=== PATIENT | male | born 1935 | race Caucasian/White ===

== ENCOUNTER → 2018-02-01 | Outpatient (CLI) | payer MEDICARE, BC ==
--- NOTE | 2018-02-01 12:59 | US ---
EXAMINATION TYPE: US venous doppler duplex LE LT DATE OF EXAM: 02/01/2018 12:37 PM COMPARISON: NONE CLINICAL HISTORY: M79.662 Pain In Limb. SIDE PERFORMED: Left TECHNIQUE: The lower extremity deep venous system is examined utilizing real time linear array sonog keira with graded compression, doppler sonography and color-flow sonography. VESSELS IMAGED: External Iliac Vein (EIV) Common Femoral Vein Deep Femoral Vein Greater Saphenous Vein * Femoral Vein Popliteal Vein Small Saphenous Vein * Proximal Calf Veins (* superficial vessels) Left Leg: Negative for DVT IMPRESSION: 1. Left lower extremity ultrasound negative for deep venous thrombosis.
--- NOTE | 2018-02-01 13:58 | XR ---
EXAMINATION TYPE: XR knee complete LT DATE OF EXAM: 02/01/2018 COMPARISON: NONE HISTORY: Pain TECHNIQUE: Four views are submitted. FINDINGS: Severe arthropathy of the medial compartment and patellofemoral joint with hypertrophic spurring. Sma ll amount of fluid in the suprapatellar bursa. Vascular calcifications noted. Osseous structures are intact. No acute fracture seen. IMPRESSION: 1. No acute fracture or dislocation. 2. Severe osteoarthritis.
== END | disposition home or self-care (01) ==
LOC: RADUSWWP 12:04
PROVIDERS: ATTEND Family Medicine
DX: M17.12 Unilateral primary osteoarthritis, left knee (principal); M79.662 Pain in left lower leg

== ENCOUNTER 2019-06-14 09:47 | Observation (INO) | payer OTHER, MEDICARE ==
[2019-06-14] MEDS ORDERED: SODIUM CHLORIDE 0.9% 500 ML 500 ML IV STA (10:13)
[2019-06-14] MEDS ORDERED: traMADol 50 MG TAB PO STA (10:15)
--- NOTE | 2019-06-14 10:19 | ED ---
Dizziness HPI - General Chief Complaint: Dizziness Stated Complaint: dizziness, fall Time Seen by Provider: 06/14/19 10:03 Source: patient Mode of arrival: ambulatory Limitations: no limitations - History of Present Illness Initial Comments: 83-year-old male with history of diabetes and hypertension controlled currently with medications per patient presenting today for chief complaint of dizziness fall possible syncope. Patient states he has had dizziness particularly when he goes to bed at night and lays down for the past 3-4 weeks. He states he mostly has only noticed this at night as soon as he lays down in bed. He states is a sensation that the room is spinning and he become slightly nauseous. Patient denies any chest pain or shortness of breath at this time denies any back pain. Patient denies any headache visual changes speech changes weakness of the upper or lower extremities or sensation deficits as a numbness or tingling sensation. Patient denies vomiting. Patient states that today he was standing near the toilet with the bathtub next to him he states he had another one of his dizzy spells with this time I'll standing up. He states that he is unsure if he passed out he states it seems that way because he doesn't remember falling but remembers when he hit the bathtub with his left low back. Patient states he has pain in that area. Patient denies abdominal pain chest pain shortness of breath current dizziness. Patient states he has no upper back neck headache hematomas or contusions of the scalp he states he does not believe he hit his head but can't be for sure. Patient denies the use of anticoagulation therapy. Upon arrival patient appears well, ambulatory no signs of acute distress. Only complaint currently is left low back pain. - Related Data Home Medications Medication Instructions Recorded Confirmed Aspirin [Adult Low Dose Aspirin EC] 81 mg PO DAILY 03/21/17 03/21/17 Lisinopril [Prinivil] 5 mg PO DAILY 03/21/17 03/21/17 Multivitamins, Thera [Multivitamin 1 tab PO DAILY 03/21/17 03/21/17 (formulary)] Simvastatin 20 mg PO HS 03/21/17 03/21/17 Vitamin E Acetate [Vitamin E] 200 unit PO DAILY 03/21/17 03/21/17 Allergies Allergy/AdvReac Type Severity Reaction Status Date / Time No Known Allergies Allergy Verified 06/14/19 09:51 Review of Systems ROS Statement: Those systems with pertinent positive or pertinent negative responses have been documented in the HPI. ROS Other: All systems not noted in ROS Statement are negative. Past Medical History Past Medical History: Diabetes Mellitus, Hyperlipidemia, Hypertension History of Any Multi-Drug Resistant Organisms: None Reported Past Surgical History: Appendectomy Additional Past Surgical History / Comment(s): Melanoma removed from face 2010. Past Psychological History: No Psychological Hx Reported Smoking Status: Former smoker Past Alcohol Use History: Occasional Past Drug Use History: None Reported General Exam - General Exam Comments Initial Comments: General: The patient is awake and alert, in no distress Eye: +3 mm pupils are equal, round and reactive to light, extra-ocular movements are intact. No nystagmus. There is normal conjunctiva bilaterally. No signs of icterus. Ears, nose, mouth and throat: There are moist mucous membranes and no oral lesions. No raccoon or alcala sign. Neck: The neck is supple, there is no tenderness or JVD. Cardiovascular: There is a regular rate and rhythm. No murmur, rub or gallop is appreciated. Respiratory: Lungs are clear to auscultation, respirations are non-labored, breath sounds are equal. No wheezes, stridor, rales, or rhonchi. Gastrointestinal: Soft, non-distended, non-tender abdomen without masses or organomegaly noted. There is no rebound or guarding present. No CVA tenderness. Musculoskeletal: Upon inspection of the cervical thoracic and lumbar spine there is no ecchymosis. Patient is no midline tenderness patient has left-sided paraspinal tenderness. Some pain noted over the water appears iliac crest region. Normal ROM of the UE and LE b/l, no tenderness. Strength 5/5 of the UE and LE b/l. Sensation intact of the UE and LE b/l. Radial pulses equal bilaterally 2+. Neurological: A&O x 3. CN II-XII intact, There are no obvious motor or sensory deficits. Coordination appears grossly intact. Speech is normal. Skin: Skin is warm and dry and no rashes or lesions are noted. No LE edema. Psychiatric: Cooperative, appropriate mood & affect, normal judgment. Limitations: no limitations Course Vital Signs 06/14/19 06/14/19 09:51 10:30 Temperature 98.1 F Pulse Rate 68 66 Respiratory 18 18 Rate Blood Pressure 158/72 144/68 O2 Sat by Pulse 95 96 Oximetry EKG Findings - EKG Comments: EKG Findings:: Ventricular rate 66 bpm, MD interval 194 ms, QRS addition 104 ms, QT/QTC 404/423 ms. This is normal sinus no ST elevation or depression. No acute changes noted. Medical Decision Making - Medical Decision Making 83-year-old male presenting for syncope with fall. Complaining of left low back and hip pain imaging studies negative for osseous process patient neurovascular intact as well as a laboratory. Patient has been having 3-4 weeks of dizziness when lying flat usually at nighttime. Patient denies any dizziness with rapid change of position or turning of the head. Patient denies any ataxia or off balance. Patient denies any headaches or focal neurological deficits. No noted on examination. No nystagmus no ataxia on exam. Patient had syncopal episode today this is concerning for possible cardiac source of dizziness. Patient EKG shows no acute findings patient on telemetry. Patient's laboratory studies unremarkable troponin negative. Patient denies any chest pain or shortness of breath. I did not appreciate a carotid bruit, or central signs of vertigo. At this time after reviewing laboratory studies EKG chest x-ray with my attending provider feels appropriate for admission for further cardiac evaluation. Patient is agreeable to this care plan as well as admission-results were discussed with patient prior to admission. Dr. Rosado accepted admission. - Lab Data Result diagrams: 06/14/19 10:20 06/14/19 10:20 Lab Results 06/14/19 06/14/19 06/14/19 Range/Units 10:20 10:20 10:20 WBC 6.8 (3.8-10.6) k/uL RBC 4.31 (4.30-5.90) m/uL Hgb 13.1 (13.0-17.5) gm/dL Hct 39.1 (39.0-53.0) % MCV 90.7 (80.0-100.0) fL MCH 30.5 (25.0-35.0) pg MCHC 33.6 (31.0-37.0) g/dL RDW 12.6 (11.5-15.5) % Plt Count 188 (150-450) k/uL Neutrophils % 55 % Lymphocytes % 32 % Monocytes % 6 % Eosinophils % 3 % Basophils % 1 % Neutrophils # 3.8 (1.3-7.7) k/uL Lymphocytes # 2.2 (1.0-4.8) k/uL Monocytes # 0.4 (0-1.0) k/uL Eosinophils # 0.2 (0-0.7) k/uL Basophils # 0.1 (0-0.2) k/uL PT 11.1 (9.0-12.0) sec INR 1.1 (<1.2) Sodium 137 (137-145) mmol/L Potassium 4.7 (3.5-5.1) mmol/L Chloride 104 (98-107) mmol/L Carbon Dioxide 22 (22-30) mmol/L Anion Gap 11 mmol/L BUN 27 H (9-20) mg/dL Creatinine 0.89 (0.66-1.25) mg/dL Est GFR (CKD-EPI)AfAm >90 (>60 ml/min/1.73 sqM) Est GFR (CKD-EPI)NonAf 79 (>60 ml/min/1.73 sqM) Glucose 232 H (74-99) mg/dL Calcium 9.7 (8.4-10.2) mg/dL Total Bilirubin 1.5 H (0.2-1.3) mg/dL AST 25 (17-59) U/L ALT 19 (4-49) U/L Alkaline Phosphatase 51 (38-126) U/L Troponin I (0.000-0.034) ng/mL Total Protein 7.3 (6.3-8.2) g/dL Albumin 4.6 (3.5-5.0) g/dL 06/14/19 Range/Units 10:20 WBC (3.8-10.6) k/uL RBC (4.30-5.90) m/uL Hgb (13.0-17.5) gm/dL Hct (39.0-53.0) % MCV (80.0-100.0) fL MCH (25.0-35.0) pg MCHC (31.0-37.0) g/dL RDW (11.5-15.5) % Plt Count (150-450) k/uL Neutrophils % % Lymphocytes % % Monocytes % % Eosinophils % % Basophils % % Neutrophils # (1.3-7.7) k/uL Lymphocytes # (1.0-4.8) k/uL Monocytes # (0-1.0) k/uL Eosinophils # (0-0.7) k/uL Basophils # (0-0.2) k/uL PT (9.0-12.0) sec INR (<1.2) Sodium (137-145) mmol/L Potassium (3.5-5.1) mmol/L Chloride (98-107) mmol/L Carbon Dioxide (22-30) mmol/L Anion Gap mmol/L BUN (9-20) mg/dL Creatinine (0.66-1.25) mg/dL Est GFR (CKD-EPI)AfAm (>60 ml/min/1.73 sqM) Est GFR (CKD-EPI)NonAf (>60 ml/min/1.73 sqM) Glucose (74-99) mg/dL Calcium (8.4-10.2) mg/dL Total Bilirubin (0.2-1.3) mg/dL AST (17-59) U/L ALT (4-49) U/L Alkaline Phosphatase (38-126) U/L Troponin I <0.012 (0.000-0.034) ng/mL Total Protein (6.3-8.2) g/dL Albumin (3.5-5.0) g/dL Disposition Clinical Impression: Syncope, Fall, Low back pain, Dizziness, Blood glucose elevated Disposition: ADMITTED IP TO THIS [facility] Condition: Stable Is patient prescribed a controlled substance at d/c from ED?: No Referrals: [facility],Clinic [Primary Care Provider] - 1-2 days Time of Disposition: 12:10 Decision to Admit Reason: Admit from EC Decision Date: 06/14/19 Decision Time: 12:10
[2019-06-14 10:41] LABS: Basophils # (A) 0.1 k/uL (0-0.2); Basophils % (A) 1 %; Eosinophils # (A) 0.2 k/uL (0-0.7); Eosinophils % (A) 3 %; HCT 39.1 % (39.0-53.0); HGB 13.1 gm/dL (13.0-17.5); INR 1.1 (<1.2); Lymphocytes # (A) 2.2 k/uL (1.0-4.8); Lymphocytes % (A) 32 %; MCH 30.5 pg (25.0-35.0); MCHC 33.6 g/dL (31.0-37.0); MCV 90.7 fL (80.0-100.0); Mean Platelet Volume 7.3; Monocytes # (A) 0.4 k/uL (0-1.0); Monocytes % (A) 6 %; Neutrophils # (A) 3.8 k/uL (1.3-7.7); Neutrophils % (A) 55 %; Platelet Count 188 k/uL (150-450); Prothrombin Time 11.1 sec (9.0-12.0); RBC 4.31 m/uL (4.30-5.90); RDW 12.6 % (11.5-15.5); WBC 6.8 k/uL (3.8-10.6)
[2019-06-14 10:48] LABS: ALT 19 U/L (4-49); AST 25 U/L (17-59); African American GFR (CKD) >90 (>60 ml/min/1.73 sqM); Albumin 4.6 g/dL (3.5-5.0); Alkaline Phosphatase 51 U/L (38-126); Anion Gap 11 mmol/L; Blood Urea Nitrogen 27 mg/dL (9-20); Calcium 9.7 mg/dL (8.4-10.2); Carbon Dioxide 22 mmol/L (22-30); Chloride 104 mmol/L (98-107); Glucose 232 mg/dL (74-99); Non-African American GFR(CKD) 79 (>60 ml/min/1.73 sqM); Potassium 4.7 mmol/L (3.5-5.1); Sodium 137 mmol/L (137-145); Total Bilirubin 1.5 mg/dL (0.2-1.3); Total Protein 7.3 g/dL (6.3-8.2)
--- NOTE | 2019-06-14 11:19 | XR ---
EXAMINATION TYPE: XR chest 2V DATE OF EXAM: 06/14/2019 COMPARISON: None HISTORY: Dizziness TECHNIQUE: Frontal and lateral views of the chest are obtained. FINDINGS: Patient is rotated the exam is expiratory. There are overlying cardiac leads. Minimal subse gmental basilar atelectatic changes are suspected. There is no focal air space opacity, pleural effus ion, or pneumothorax seen. The cardiac silhouette size is within normal limits. The osseous struct ures are intact, anterior wedging noted at the thoracic lumbar junction level, there is multilevel sp ondylosis present in the thoracic lumbar spine. Aorta is dense. IMPRESSION: Expiratory rotated exam. Suspect subsegmental basilar atelectatic changes.
--- NOTE | 2019-06-14 11:21 | XR ---
Left hip HISTORY: Trauma, pain 2 views of the left hip Bone mineralization, joint spaces and alignment are maintained. Similar projections of the 2 images. Mild arthropathy change, hypertrophic change noted. IMPRESSION: No fracture or dislocation evident, follow-up as indicated.
--- NOTE | 2019-06-14 11:24 | CT ---
EXAMINATION TYPE: CT brain harpal kaba con DATE OF EXAM: 06/14/2019 COMPARISON: 03/21/2017 HISTORY: Fall CT DLP: 1431.4 mGycm, Automated exposure control for dose reduction was used. CONTRAST: Patient injected with 0 mL of Isovue 300. CT of the brain is performed utilizing 3 mm thick sections through the posterior fossa and 3 mm thick sections through the remaining calvarium. Study is performed within 24 hours of arrival to the hospital. No abnormal hyperdensity is present to suggest an acute intracranial hemorrhage. No mass lesion is evident. No acute infarcts are evident. Ventricles and sulci are prominent for the patient age. There is a retention cyst within the right maxillary sinus. Tiny retention cyst is within the left ma xillary sinus. IMPRESSIONS: 1. Age-related atrophy. CT cervical spine. COMPARISON: None CT of the cervical spine is performed in the axial plane at 2 mm thick sections. Reconstructed image s in the coronal, and sagittal plane are reviewed on the computer. No acute fractures are evident. Vertebral body alignment is straightened. There is loss of disc height C3-4, C5-6 C6-7. Endplate spurring is present at these levels. Anterior vertebral body spurring is present. The prevertebral space is otherwise unremarkable. Vertebral body heights are preserved. There is some left foraminal narrowing due to facet hypertrophy is seen to C3. Mild uncovertebral jc nt hypertrophy is present C3-4. Some mild right foraminal narrowing is present C4-5 from uncovertebra l joint hypertrophy and facet hypertrophy. Uncovertebral joint hypertrophy with mild foraminal narrow ing is present C5-6. Moderate foraminal stenosis at C6-7 from uncovertebral joint hypertrophy is pres ent. Left paracentral endplate spurring may contribute to some spinal canal impingement. Correlate wi th the radicular symptoms. IMPRESSIONS: 1. No acute osseous abnormality cervical spine. 2. Degenerative disc changes uncovertebral joint hypertrophy and facet hypertrophy discussed above. S ome moderate foraminal narrowing and left paracentral anterior thecal sac compression is present C6-7 from osseous spurring and degenerative changes
--- NOTE | 2019-06-14 11:30 | XR ---
Lumbar spine HISTORY: Trauma and pain 3 views the lumbar spine Anterior wedging is noted at L1, loss of height anteriorly of approximately 50%. Difficult to exclude some minimal retropulsion. Bone mineralization is reduced. There is multilevel spondylosis. Loss of disc height present at several intervertebral levels. Anterolisthesis grade 1 at L5-S1, vacuum disc p henomenon present at the intervertebral levels L3-4, L4-5 and L5-S1. Sclerosis present in the posteri or element compatible with facet arthropathy. Atherosclerotic vascular calcifications are noted. Ther e is a slight spinal curvature. IMPRESSION: Osteoporotic compression fracture L1. Degenerative disc disease, spondylolisthesis, facet arthropathy.
[2019-06-14] MEDS ORDERED: NALOXONE 0.4 MG/ML 1 ML VIAL IV PRN (12:07)
[2019-06-14] MEDS ORDERED: ONDANSETRON 4 MG/2 ML VIAL IVP PRN (12:07)
[2019-06-14] MEDS ORDERED: MORPHINE SULFATE 4 MG/ML SYRINGE IV PRN (12:07)
[2019-06-14] MEDS: SODIUM CHLORIDE 0.9% 1,000 ML IV SCH (12:56)
[2019-06-14 16:00] LABS: Appearance,Urine Clear (Clear); Bilirubin,Urine Negative (Negative); Blood,Urine Negative (Negative); Color,Urine Yellow; Glucose,Urine (UA) Negative (Negative); Ketones,Urine Negative (Negative); Leukocyte Esterase,Urine Negative (Negative); Nitrite,Urine Negative (Negative); PH, Urine 5.5 (5.0-8.0); Protein,Urine Negative (Negative); Specific Gravity,Urine 1.026 (1.001-1.035); Urobilinogen,Urine <2.0 mg/dL (<2.0)
[2019-06-14 17:03] LABS: Glucose,Whole Blood 191 mg/dL (75-99)
[2019-06-14] MEDS: INSULIN ASPART (NovoLOG) 100 UNIT/ML VIAL SQ SCH ×2 (17:09→20:41)
--- NOTE | 2019-06-14 18:56 | P.CNNES ---
History of Present Illness Consult date: 06/14/19 Requesting physician: Elizabeth Pike Reason for Consult: Dizziness History of Present Illness: Patient is a 83-year-old male who came to the hospital after he suffered from a fall in the bathroom at 5 AM this morning. Patient states that at night he wanted to go to the bathroom. He was standing up and fell backwards. He thinks he may have passed out for a short while. Patient denies being tripping or slipping. Patient states that for the past 1 month, he has been feeling dizzy, lightheaded and spinning sensation whenever he lays down on his back in the bed. It also happens when he rolls over in the bed on the right side. The dizziness does not occur when he bends down or looks up. Patient states that about 3 years ago he fell off a 3 step ladder and fell on back of his head. He did have janeth put in. Did not have any chronic headaches afterwards. He did pass out for short while after that fall. I looked at the records, and it actually occurred on 03/21/2017. Patient also has a fall couple weeks ago in the living room. This time he fell face forward. He does not remember if he tripped and there was no passing out. Patient does not use any assistive device. Patient denies any tremors or any parkinsonian features. Patient has history of diabetes. He does not smoke. Drinks one mixed drink of alcohol every other day. Never been a heavy drinker. Patient is very hard of hearing. Patient underwent computed tomography scan of the head, which revealed age- related atrophy. CT of the cervical spine showed no acute osseous abnormality cervical spine. Degenerative disc changes uncovertebral joint hypertrophy and facet hypertrophy discussed above. Some moderate foraminal narrowing and left paracentral anterior thecal sac compression is present at C6 7 from osseous spurring and degenerative changes. X-ray of the lumbar spine showed osteoporotic compression fracture L1. Spondylolisthesis. EKG showed normal sinus rhythm. X-ray of the hip showed no fracture or dislocation. Review of Systems Complains of back pain, from compression fracture. Patient is very hard of hearing. Denies headache and double vision loss of vision. Denies chest pain shortness of breath wheezing cough. Patient denies sinus drainage, though has sinus congestion. Denies nausea vomiting diarrhea. Past Medical History Past Medical History: Diabetes Mellitus, Hyperlipidemia, Hypertension History of Any Multi-Drug Resistant Organisms: None Reported Past Surgical History: Appendectomy Additional Past Surgical History / Comment(s): Melanoma removed from face 2009. Past Psychological History: No Psychological Hx Reported Smoking Status: Former smoker Past Alcohol Use History: Occasional Past Drug Use History: None Reported Medications and Allergies Home Medications Medication Instructions Recorded Confirmed Type Aspirin [Adult Low Dose Aspirin EC] 81 mg PO DAILY 03/21/17 06/14/19 History Multivitamins, Thera [Multivitamin 1 tab PO DAILY 03/21/17 06/14/19 History (formulary)] Simvastatin 20 mg PO HS 03/21/17 06/14/19 History Lisinopril [Zestril] 10 mg PO DAILY 06/14/19 06/14/19 History Chamberino-3 Fatty Acids/Fish Oil [Fish 1 cap PO DAILY 06/14/19 06/14/19 History Oil 1,000 mg Softgel] Tamsulosin [Flomax] 0.4 mg PO DAILY 06/14/19 06/14/19 History metFORMIN HCL [Glucophage] 500 mg PO BID 06/14/19 06/14/19 History Allergies Allergy/AdvReac Type Severity Reaction Status Date / Time No Known Allergies Allergy Verified 06/14/19 13:00 Physical Examination - Vital Signs Vital Signs: Vital Signs Temp Pulse Pulse Resp BP BP Pulse Ox 06/14/19 14:31 97.7 F 64 148/75 97 06/14/19 12:58 98.2 F 64 18 131/72 95 06/14/19 10:30 66 18 144/68 96 06/14/19 09:51 98.1 F 68 18 158/72 95 Intake and Output 06/14/19 06/14/19 06/14/19 06:59 14:59 22:59 Other: Voiding Method Toilet # Voids 1 Weight 88.451 kg On examination patient is an elderly male, in no distress. Patient is alert and awake fully oriented. Speech and language functions are normal. Attention and concentration fund of knowledge is adequate. Patient is very hard of hearing, using hearing aids. On cranial nerve examination pupils are round and reacting to light, visual obrien are full on confrontation, extraocular muscles intact with no nystagmus. Face is symmetric, tongue protrudes the midline. Palatal elevation sensation normal. On muscle strength testing there is no pronator drift and the strength is normal in arms and legs distally and proximally. Reflexes are about 1-1+ in the upper limbs, 1+ in the right knee, 1 on left. Ankles are probably absent and plantars are possibly upgoing. Sensory touch is equal. No ataxia for [id number] testing. Tone is completely n ormal in both upper limbs and bulk of muscles normal. No tremors noted at rest or with posture. Patient does get dizzy when he turns his head to the right. Full body turning could not be performed because of back pain from recent compression fracture. There is no obvious bruit S1 and S2 audible. Peripheral pulses present. Results - Laboratory Findings CBC and BMP: 06/14/19 10:20 06/14/19 10:20 Abnormal Lab Findings: Abnormal Labs 06/14/19 06/14/19 10: 17:02 BUN 27 H Glucose 232 H POC Glucose (mg/dL) 191 H Total Bilirubin 1.5 H Assessment and Plan Assessment: * 83-year-old male admitted with a fall while going to the bathroom. Patient states that he may have passed out for a short while (? Possible syncope). Patient also has been experiencing dizziness on laying back in the bed or rolling over to the right for the past 1 month. He may have developed benign positional vertigo. Computed tomography scan of head revealed very significant right maxillary sinus disease (retention cyst), with near complete opacification of the maxillary sinus. Patient also has moderate ethmoid air cell disease, and mild sphenoid sinus. His dizziness is likely due to peripheral vestibular dysfunction, probably related to paranasal sinus disease. No clinical evidence of parkinsonism. * Diabetes * Hypertension Plan: * For possible syncopal spell, patient will undergo carotid Doppler to rule out stenosis. Cardiology also on board, to rule out arrhythmia. * For vertigo and falls, we will check B12, folate, RPR. I would also suggest an ENT consultation for severe paranasal sinus disease. Patient probably has peripheral vestibular dysfunction as a result of above. * Neurology coverage not available on the weekend.
[2019-06-14] MEDS ORDERED: ALPRAZolam 0.25 MG TAB PO PRN (19:04)
--- NOTE | 2019-06-14 19:47 | US ---
EXAMINATION TYPE: US carotid duplex BILAT DATE OF EXAM: 06/14/2019 COMPARISON: NONE CLINICAL HISTORY: vertigo. EXAM MEASUREMENTS: RIGHT: Peak Systolic Velocity (PSV) cm/sec ----- Right CCA: 76.8 ----- Right ICA: 78.1 ----- Right ECA: 98.4 ICA/CCA ratio: 1.0 RIGHT: End Diastole cm/sec ----- Right CCA: 14.2 ----- Right ICA: 15.5 ----- Right ECA: 4.7 LEFT: Peak Systolic Velocity (PSV) cm/sec ----- Left CCA: 96.9 ----- Left ICA: 78.8 ----- Left ECA: 94.0 ICA/CCA ratio: 0.8 LEFT: End Diastole cm/sec ----- Left CCA: 10.2 ----- Left ICA: 14.1 ----- Left ECA: 6.8 VERTEBRALS (direction of flow): Right Vertebral: Antegrade Left Vertebral: Antegrade Rhythm: Normal Moderate/severe amount of plaque visualized in bilateral bulbs and proximal ICAs. No elevated velocit ies, no significant stenosis IMPRESSION: There is antegrade flow in the vertebral arteries. Extensive irregular plaque formation at the caroti d artery bifurcations. The images and measurements suggest 50% stenosis in both internal carotid yajaira jennifer. Criteria for Assigning % of Stenosis / Diameter reduction (Estimation based on the indirect measurements of the internal carotid artery velocities (ICA PSV). 1. Normal (no stenosis)=ICA PSV < 125 cm/s: ratio < 2.0: ICA EDV<40 cm/s. 2. Less than 50% stenosis=ICA PSV < 125 cm/s: ratio < 2.0: ICA EDV<40 cm/s. 3. 50 to 69% stenosis=ICA PSV of 125 to 230 cm/s: ration 2.0 ? 4.0: ICA EDV 40-100 cm/s. 4. Greater than 70% stenosis to near occlusion= ICA PSV > 230 cm/s: ratio > 4.0: ICA EDV > 100 cm/s. 5. Near occlusion= ICA PSV velocities may be low or undetectable: variable ratio and ICA EDV. 6. Total occlusion=unable to detect flow.
[2019-06-14 19:54] LABS: Glucose,Whole Blood 171 mg/dL (75-99)
[2019-06-14] MEDS: metFORMIN 500 MG TAB PO SCH (20:46)
[2019-06-14] MEDS: HEPARIN SODIUM,PORCINE 5,000 UNIT/ML 1 ML VIAL SQ SCH (20:46)
[2019-06-14] MEDS: MECLIZINE 12.5 MG TAB PO SCH (20:46)
[2019-06-14] MEDS: ATORVASTATIN 10 MG TAB PO SCH (20:46)
--- NOTE | 2019-06-14 22:34 | HP ---
HISTORY AND PHYSICAL DATE OF SERVICE: 06/14/2019 CHIEF COMPLAINT: Dizziness. HISTORY OF PRESENT ILLNESS: This 83-year-old gentleman with a past medical history of multiple medical problems, diabetes, hypertension, hyperlipidemia, appendectomy, being followed by Dr. Graves in the outpatient setting, was complaining of dizziness. The patient apparently had at least 2 falls today. The patient was in the toilet urinating, but apparently the patient fell in the bathtub. The patient unable to remember exact details of the instances. The patient followed by the [facility] and the patient taken to [facility] and admitted to the hospital for further evaluation and treatment at this time. Neurology evaluation ongoing. The patient was feeling dizzy for the last several weeks. The patient also states a sensation of spinning. CT scan of the brain showed only age-related atrophy. Lumbar x-ray showed compression fracture of L1. The possibility of peripheral vascular has been also being considered at this time. There is no history of fever, rigors. No history of any headache, seizures at this time. PAST MEDICAL HISTORY: History of diabetes, hypertension, hyperlipidemia, history of melanoma removal, appendectomy. MEDICATIONS: 1. Metformin 500 mg p.o. b.i.d. 2. Flomax 0.4 daily. 3. Simvastatin 20 mg q.h.s. 4. [place]-3 fatty acids 1 p.o. daily. 5. Multivitamins one p.o. daily. 6. Zestril 10 mg daily. 7. Aspirin 81 mg daily. ALLERGIES: None. FAMILY HISTORY: No history of heart disease or strokes in the family. SOCIAL HISTORY: Previous history of smoking. Occasional alcohol intake. REVIEW OF SYSTEMS: ENT as mentioned earlier. CARDIOVASCULAR: No angina or palpitations. RESPIRATIONS: No cough or hemoptysis. GI no nausea or vomiting. no dysuria or hematuria. NERVOUS SYSTEM: As mentioned earlier. ALLERGY/IMMUNOLOGY: No asthma or hayfever. MUSCULOSKELETAL as mentioned. HEMATOLOGY: No history of anemia. ENDOCRINE: No history of diabetes or hypothyroidism. CONSTITUTIONAL: As mentioned earlier. RHEUMATOLOGY: Negative. DERMATOLOGY: Negative. PSYCHIATRIC: As mentioned earlier. PHYSICAL EXAMINATION: Alert and oriented x3. Pulse is 64, blood pressure 140/73, respirations 18. Temperature 98.2, pulse ox 97% on room air. Conjunctivae normal. Oral mucosa moist. Neck is no jugular venous distention. No carotid bruit. No lymph node enlargement. CARDIOVASCULAR systems: S1, S2 muffled. RESPIRATION: Breath sounds diminished in the bases. No rhonchi. No crackles. ABDOMEN: Soft, nontender. No mass palpable. LEGS: No edema. No swelling. NERVOUS SYSTEM: Higher functions as mentioned earlier. Otherwise, cranial nerves grossly intact. No nystagmus. No diplopia. Otherwise, no signs of cerebellar dysfunction. Moves all 4 limbs. Mild diffuse weakness. LYMPHATICS: No lymph nodes palpable in the neck, axillae or groin. SKIN: No ulcer, rash or bleeding. JOINTS: No active deforming arthropathy. LABS: CBC within normal limits. Glucose 232, total bilirubin is 1.4. UA noted. ASSESSMENT: 1. Dizziness, vertigo for evaluation with a fall with possibly peripheral vestibular dysfunction. 2. Rule out cardiac arrhythmia. 3. Diabetes mellitus type 2. 4. Hypertension. 5. Hyperlipidemia. 6. History of appendectomy. 7. History of melanoma. 8. Remote history of nicotine dependence. 9. FULL CODE. RECOMMENDATIONS AND DISCUSSION: In this 83-year-old gentleman who presented with multiple complex medical issues, we will monitor the patient closely. Continue the current medications, management and symptomatic treatment. Otherwise, at this time, I recommend continue with the current medications, symptomatic treatment. Otherwise, p.r.n. Antivert. I recommended neurology and cardiology consultations., guarded prognosis. Further recommendations to follow. A copy of this dictation being forwarded to Dr. Graves who is the primary physician. MMRODDYL / OLIVERN: [id number] / MTDD
[2019-06-15 00:23] LABS: Folate, Serum >24.0 ng/mL
[2019-06-15] MEDS: SODIUM CHLORIDE 0.9% 1,000 ML IV SCH ×2 (00:50→17:34)
[2019-06-15 06:01] LABS: Basophils # (A) 0.1 k/uL (0-0.2); Basophils % (A) 1 %; Eosinophils # (A) 0.2 k/uL (0-0.7); Eosinophils % (A) 4 %; HCT 36.4 % (39.0-53.0); HGB 12.4 gm/dL (13.0-17.5); Lymphocytes # (A) 2.5 k/uL (1.0-4.8); Lymphocytes % (A) 43 %; MCH 30.7 pg (25.0-35.0); MCV 90.2 fL (80.0-100.0); Mean Platelet Volume 7.2; Monocytes # (A) 0.3 k/uL (0-1.0); Monocytes % (A) 5 %; Neutrophils # (A) 2.6 k/uL (1.3-7.7); Neutrophils % (A) 45 %; Platelet Count 194 k/uL (150-450); RBC 4.04 m/uL (4.30-5.90); RDW 12.6 % (11.5-15.5); WBC 5.9 k/uL (3.8-10.6)
[2019-06-15 06:11] LABS: African American GFR (CKD) >90 (>60 ml/min/1.73 sqM); Anion Gap 7 mmol/L; Blood Urea Nitrogen 21 mg/dL (9-20); Carbon Dioxide 25 mmol/L (22-30); Chloride 105 mmol/L (98-107); Glucose 138 mg/dL (74-99); Non-African American GFR(CKD) 84 (>60 ml/min/1.73 sqM); Potassium 4.6 mmol/L (3.5-5.1); Sodium 137 mmol/L (137-145)
[2019-06-15 06:41] LABS: Glucose,Whole Blood 146 mg/dL (75-99)
[2019-06-15] MEDS ORDERED: NON FORMULARY DRUG (Omega-3 Fatty Acids/Fish Oil [Fish Oil 1,000 Mg Softgel] 1 CAP) PO SCH (09:00)
[2019-06-15] MEDS ORDERED: LISINOPRIL 10 MG TAB PO SCH (09:00)
[2019-06-15] MEDS: INSULIN ASPART (NovoLOG) 100 UNIT/ML VIAL SQ SCH ×4 (09:32→19:59)
[2019-06-15] MEDS ORDERED: LISINOPRIL 10 MG TAB PO STA (09:41)
[2019-06-15] MEDS: HEPARIN SODIUM,PORCINE 5,000 UNIT/ML 1 ML VIAL SQ SCH ×2 (09:49→19:59)
[2019-06-15] MEDS: MULTIVITAMINS, THERA 1 EACH TAB PO SCH (09:50)
[2019-06-15] MEDS: TAMSULOSIN 0.4 MG CAP.ER.24H PO SCH (09:50)
[2019-06-15] MEDS: ASPIRIN 81 MG PO SCH (09:50)
[2019-06-15] MEDS: MECLIZINE 12.5 MG TAB PO SCH ×3 (09:50→20:00)
[2019-06-15] MEDS: metFORMIN 500 MG TAB PO SCH ×2 (09:50→20:00)
--- NOTE | 2019-06-15 11:24 | P.CRDCN ---
History of Present Illness History of present illness: HISTORY OF PRESENTING ILLNESS This is a pleasant 83-year-old male past medical history significant for hypertension, dyslipidemia and diabetes mellitus. 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 We have been asked to see in consultation for syncope and dizziness. He states for the previous 3-4 weeks he's been experiencing frequent episodes of dizziness described as the room spinning. Yesterday while he was in the restroom he became acutely dizzy upon standing he fell into the bathtub. He is unsure if there was loss of consciousness. He denies feeling chest pain, shortness of breath, palpitations, nausea, vomiting or diaphoresis. He is seen and examined sitting up in bed in no acute distress with family at the bedside. He has had no further symptoms of dizziness since arriving at the hospital. He has been seen in consultation by neurology and diagnosed with vertigo. Antivert has been initiated. Telemetry tracings have been unremarkable. EKG reveals sinus mechanism with no acute ST or T wave abnormalities noted. Chest x-ray is negative for an acute cardiopulmonary process with evidence of basilar atelectasis. CT of the brain is negative for an acute process with evidence of chronic atrophy. Bilateral carotid duplex revealed evidence of 50% plaque bilaterally. Laboratory data reviewed, WBC 5.9, hemoglobin 12.4, platelets 194, sodium 137, potassium 4.6, creatinine 0.77, cardiac enzymes negative 1. Currently maintained on aspirin 81 mg daily, lisinopril 10 mg daily, simvastatin 20 mg daily. REVIEW OF SYSTEMS At the time of my exam: CONSTITUTIONAL: Denies fever or chills. CARDIOVASCULAR: Denies chest pain, shortness of breath, orthopnea, PND or palpitations. RESPIRATORY: Denies cough. GASTROINTESTINAL: Denies abdominal pain, diarrhea, constipation, nausea or vomiting. MUSCULOSKELETAL: Denies myalgias. NEUROLOGIC: Denies numbness, tingling or weakness. ENDOCRINE: Denies fatigue, weight change, polydipsia or polyurina. GENITOURINARY: Denies burning, hematuria or urgency with micturation. HEMATOLOGIC: Denies history of anemia or bleeding. PHYSICAL EXAMINATION Blood pressure 149/70 heart rate 66 afebrile and maintaining oxygen saturation on room air. CONSTITUTIONAL: No apparent distress. HEENT: Head is normocephalic. Pupils are equal, round. Sclerae anicteric. Mucous membranes of the mouth are moist. No JVD. Bilateral carotid bruit. CHEST EXAMINATION: Lungs are clear to auscultation. No chest wall tenderness is noted on palpation or with deep breathing. HEART EXAMINATION: Regular rate and rhythm. S1, S2 heard. No murmurs, gallops or rub. ABDOMEN: Soft, nontender. Positive bowel sounds. EXTREMITIES: 2+ peripheral pulses, no lower extremity edema and no calf tenderness. NEUROLOGIC EXAMINATION: Patient is awake, alert and oriented x3. ASSESSMENT Dizziness suggestive of vertigo relieved with Antivert Hypertension Dyslipidemia Diabetes mellitus PLAN Increase lisinopril to 20 mg daily for optimal blood pressure control. Obtain 2-D echocardiogram and Doppler study to assess cardiac structure and function. Continue Antivert as previously prescribed. Recommend follow-up with ENT. Stable from a cardiac perspective with no evidence of arrhythmia. Thank you kindly for this consultation. Nurse Practitioner note has been reviewed, I agree with a documented findings and plan of care. Patient was seen and examined. Past Medical History Past Medical History: Diabetes Mellitus, Hyperlipidemia, Hypertension History of Any Multi-Drug Resistant Organisms: None Reported Past Surgical History: Appendectomy Additional Past Surgical History / Comment(s): Melanoma removed from face 2009. Past Psychological History: No Psychological Hx Reported Smoking Status: Former smoker Past Alcohol Use History: Occasional Past Drug Use History: None Reported Medications and Allergies Home Medications Medication Instructions Recorded Confirmed Type Aspirin [Adult Low Dose Aspirin EC] 81 mg PO DAILY 03/21/17 06/14/19 History Multivitamins, Thera [Multivitamin 1 tab PO DAILY 03/21/17 06/14/19 History (formulary)] Simvastatin 20 mg PO HS 03/21/17 06/14/19 History Lisinopril [Zestril] 10 mg PO DAILY 06/14/19 06/14/19 History [place]-3 Fatty Acids/Fish Oil [Fish 1 cap PO DAILY 06/14/19 06/14/19 History Oil 1,000 mg Softgel] Tamsulosin [Flomax] 0.4 mg PO DAILY 06/14/19 06/14/19 History metFORMIN HCL [Glucophage] 500 mg PO BID 06/14/19 06/14/19 History Allergies Allergy/AdvReac Type Severity Reaction Status Date / Time No Known Allergies Allergy Verified 06/14/19 13:00 Physical Exam Vitals: Vital Signs Temp Pulse Pulse Pulse Pulse Pulse Resp 06/15/19 07:00 97.8 F 66 18 06/15/19 04:00 98.0 F 69 17 06/15/19 03:14 62 18 06/14/19 23:36 98.1 F 71 18 06/14/19 23:32 62 18 06/14/19 20:00 64 66 79 68 18 06/14/19 19:19 98.1 F 66 79 68 06/14/19 14:31 97.7 F 64 06/14/19 12:58 98.2 F 64 18 06/14/19 10:30 66 18 06/14/19 09:51 98.1 F 68 18 BP BP BP BP BP Pulse Ox 06/15/19 07:00 149/70 96 06/15/19 04:00 148/74 99 06/15/19 03:14 06/14/19 23:36 172/74 98 06/14/19 23:32 06/14/19 20:00 06/14/19 19:19 153/68 152/67 146/65 06/14/19 14:31 148/75 97 06/14/19 12:58 131/72 95 06/14/19 10:30 144/68 96 06/14/19 09:51 158/72 95 Intake and Output 06/14/19 06/15/19 06/15/19 22:59 06:59 14:59 Intake Total 375 Output Total 100 1250 Balance -100 -875 Intake: Intake, IV Titration 375 Amount Sodium Chloride 0.9% 1, 375 000 ml @ 75 mls/hr IV . [id number] [facility] Rx#:[id number] Oral 0 Output: Urine 100 1250 Other: Voiding Method Toilet Toilet # Voids 1 Weight 87.6 kg Results 06/15/19 05:43 06/15/19 05:43 Cardiac Enzymes 06/14/19 06/14/19 Range/Units 10:20 10:20 AST 25 (17-59) U/L Troponin I <0.012 (0.000-0.034) ng/mL Coagulation 06/14/19 Range/Units 10:20 PT 11.1 (9.0-12.0) sec CBC 06/14/19 06/15/19 Range/Units 10:20 05:43 WBC 6.8 5.9 (3.8-10.6) k/uL RBC 4.31 4.04 L (4.30-5.90) m/uL Hgb 13.1 12.4 L (13.0-17.5) gm/dL Hct 39.1 36.4 L (39.0-53.0) % Plt Count 188 194 (150-450) k/uL Comprehensive Metabolic Panel 06/14/19 06/15/19 Range/Units 10:20 05:43 Sodium 137 137 (137-145) mmol/L Potassium 4.7 4.6 (3.5-5.1) mmol/L Chloride 104 105 (98-107) mmol/L Carbon Dioxide 22 25 (22-30) mmol/L BUN 27 H 21 H (9-20) mg/dL Creatinine 0.89 0.77 (0.66-1.25) mg/dL Glucose 232 H 138 H (74-99) mg/dL Calcium 9.7 9.0 (8.4-10.2) mg/dL AST 25 (17-59) U/L ALT 19 (4-49) U/L Alkaline Phosphatase 51 (38-126) U/L Total Protein 7.3 (6.3-8.2) g/dL Albumin 4.6 (3.5-5.0) g/dL Current Medications Generic Name Dose Route Start Last Admin Trade Name Freq PRN Reason Stop Dose Admin Alprazolam 0.25 mg 06/14/19 19:04 Xanax PO TID PRN Anxiety Aspirin 81 mg 06/15/19 09:00 Aspirin PO DAILY [facility] Atorvastatin Calcium 10 mg 06/14/19 21:00 06/14/19 20:46 Lipitor PO 10 mg HS QUINTIN Administration Heparin Sodium (Porcine) 5,000 unit 06/14/19 21:00 06/14/19 20:46 Heparin SQ 5,000 unit Q12HR QUINTIN Administration Sodium Chloride 1,000 mls @ 75 mls/hr 06/14/19 12:15 06/15/19 00:50 Saline 0.9% IV Not Given .[id number] QUINTIN Insulin Aspart 0 unit 06/14/19 17:30 06/14/19 20:41 Novolog SQ Not Given ACHS [facility] Protocol Lisinopril 10 mg 06/15/19 09:00 Zestril PO DAILY QUINTIN Meclizine HCl 12.5 mg 06/14/19 22:00 06/14/19 20:46 Antivert PO 12.5 mg TID QUINTIN Administration Metformin HCl 500 mg 06/14/19 21:00 06/14/19 20:46 Glucophage PO 500 mg BID QUINTIN Administration Morphine Sulfate 4 mg 06/14/19 12:07 Morphine Sulfate (Inj) IV Q4HR PRN Severe Pain Multivitamins 1 each 06/15/19 09:00 Theragran PO DAILY QUINTIN Naloxone HCl 0.2 mg 06/14/19 12:07 Narcan IV Q2M PRN Opioid Reversal Ondansetron HCl 4 mg 06/14/19 12:07 Zofran IVP Q8HR PRN Nausea And Vomiting Tamsulosin HCl 0.4 mg 06/15/19 09:00 Flomax PO DAILY QUINTIN Intake and Output 06/14/19 06/15/19 06/15/19 22:59 06:59 14:59 Intake Total 375 Output Total 100 1250 Balance -100 -875 Intake: Intake, IV Titration 375 Amount Sodium Chloride 0.9% 1, 375 000 ml @ 75 mls/hr IV . [id number] [facility] Rx#:[id number] Oral 0 Output: Urine 100 1250 Other: Voiding Method Toilet Toilet # Voids 1 Weight 87.6 kg 06/15/19 05:43 06/15/19 05:43
[2019-06-15 11:48] LABS: Glucose,Whole Blood 139 mg/dL (75-99)
[2019-06-15 13:24] LABS: Hemoglobin A1C 7.5 % (4.0-6.0)
--- NOTE | 2019-06-15 14:14 | PN ---
PROGRESS NOTE DATE OF SERVICE: 06/15/2019 This is an 83-year-old gentleman admitted with dizziness is being closely monitored. The patient has some gait dysfunction also. The patient had carotid Doppler which showed about 50% stenosis. Recommended outpatient followup. No chest pain. No palpitations. No fever. PAST MEDICAL HISTORY: Reviewed. REVIEW OF SYSTEMS: CARDIOVASCULAR SYSTEM: No angina. RESPIRATION: As mentioned earlier. GI: As mentioned earlier. : No dysuria. NERVOUS SYSTEM: No numbness or weakness. CURRENT MEDICATIONS ARE: Reviewed and include: 1. Xanax 0.5 t.i.d. 2. Aspirin 81 mg daily. 3. Lipitor 10 mg q.h.s. 4. Heparin b.i.d. 5. Zestril 20 mg. 6. Antivert 12.5 mg. 7. Glucophage 500 mg b.i.d. 8. Multivitamins 1 daily. 9. Zofran 4 mg q.6 p.r.n. 10.Flomax 0.4 daily. PHYSICAL EXAMINATION: Patient is alert and oriented x3. Pulse 67, blood pressure 130/60, respiration 18, temperature 98.2, pulse ox 97% on room air. HEENT: Conjunctivae normal. NECK: No jugular venous distension. CARDIOVASCULAR SYSTEM: S1, S2, muffled. RESPIRATION: Breath sounds diminished at the bases, bilateral scattered rhonchi, no crackles. ABDOMEN: Soft, nontender. LEGS: No edema. No swelling. LABS: WBC is 5.2, hemoglobin is 12.4, sodium 137, potassium 4.6, hemoglobin 7.5. ASSESSMENT: 1. Dizziness, vertigo evaluation with possible peripheral vascular dysfunction. 2. Carotid stenosis 50%, bilateral. 3. Rule out cardiac arrhythmia. 4. Diabetes mellitus type 2. 5. Hypertension. 6. Gait dysfunction. 7. Hyperlipidemia. 8. History of melanoma. 9. Remote history of nicotine dependence. 10.FULL CODE. RECOMMENDATION: Recommend to continue current management and symptomatic treatment. Continue with the orthostatic vitals. Cardiology input appreciated. PT, OT evaluation. Recommend outpatient followup for the carotid stenosis. Will continue with the antiplatelet agents. DVT prophylaxis. Monitor blood sugars closely. Further recommendations to follow. Will increase ambulation. Discussed with the family who understands and accepts. MMODL / IJN: [id number] /
--- NOTE | 2019-06-15 14:43 | ECHOF ---
Referral Reason:Stroke MEASUREMENTS -------- HEIGHT: 162.6 cm WEIGHT: 87.5 kg BP: 148/74 RVIDd: 3.5 cm (< 3.3) IVSd: 1.4 cm (0.6 - 1.1) LVIDd: 4.5 cm (3.9 - 5.3) LVPWd: 1.4 cm (0.6 - 1.1) IVSs: 1.6 cm LVIDs: 2.9 cm LVPWs: 1.7 cm LA Diam: 3.6 cm (2.7 - 3.8) LAESV Index (A-L): 26.46 ml/m Ao Diam: 2.8 cm (2.0 - 3.7) AV Cusp: 1.7 cm (1.5 - 2.6) MV EXCURSION: 20.130 mm (> 18.000) MV EF SLOPE: 48 mm/s (70 - 150) EPSS: 0.6 cm MV E Robin: 0.66 m/s MV DecT: 163 ms MV A Robin: 0.83 m/s MV E/A Ratio: 0.79 AV maxP.93 mmHg AV meanP.76 mmHg RAP: 5.00 mmHg RVSP: 36.00 mmHg FINDINGS -------- Sinus rhythm. This was a technically adequate study. The left ventricular size is normal. There is moderate concentric left ventricular hypertrophy. O verall left ventricular systolic function is normal with, an EF between 55 - 60 %. The right ventricle is normal in size. The left atrial size is normal. The right atrial size is normal. There is mild aortic regurgitation. There is mild aortic stenosis present. Peak/mean gradient acr oss the Aortic Valve is 23.93mmHg / 13.76mmHg. Mild mitral annular calcification present. There is trace mitral regurgitation. Mild tricuspid regurgitation present. Right ventricular systolic pressure is normal at < 35 mmHg. There is mild pulmonary hypertension. There is no pulmonic regurgitation present. The aortic root size is normal. There is no pericardial effusion. CONCLUSIONS -------- 1. Sinus rhythm. 2. This was a technically adequate study. 3. The left ventricular size is normal. 4. There is moderate concentric left ventricular hypertrophy. 5. Overall left ventricular systolic function is normal with, an EF between 55 - 60 %. 6. The right ventricle is normal in size. 7. The left atrial size is normal. 8. The right atrial size is normal. 9. There is mild aortic regurgitation. 10. There is mild aortic stenosis present. 11. Peak/mean gradient across the Aortic Valve is 23.93mmHg / 13.76mmHg. 12. Mild mitral annular calcification present. 13. There is trace mitral regurgitation. 14. Mild tricuspid regurgitation present. 15. Right ventricular systolic pressure is normal at < 35 mmHg. 16. There is mild pulmonary hypertension. 17. There is no pulmonic regurgitation present. 18. The aortic root size is normal. 19. There is no pericardial effusion. CHIEF HUMAN RESOURCES OFFICER: Bethany Parker RDCS
[2019-06-15 16:31] LABS: Glucose,Whole Blood 131 mg/dL (75-99)
[2019-06-15 19:45] LABS: Glucose,Whole Blood 156 mg/dL (75-99)
[2019-06-15] MEDS: ATORVASTATIN 10 MG TAB PO SCH (20:00)
[2019-06-16 06:34] LABS: Glucose,Whole Blood 141 mg/dL (75-99)
[2019-06-16 07:06] LABS: Basophils % (A) 1 %; Eosinophils # (A) 0.2 k/uL (0-0.7); Eosinophils % (A) 4 %; HGB 12.9 gm/dL (13.0-17.5); Lymphocytes # (A) 2.4 k/uL (1.0-4.8); Lymphocytes % (A) 40 %; MCH 30.6 pg (25.0-35.0); MCHC 33.9 g/dL (31.0-37.0); MCV 90.1 fL (80.0-100.0); Mean Platelet Volume 7.1; Monocytes # (A) 0.4 k/uL (0-1.0); Monocytes % (A) 6 %; Neutrophils # (A) 2.8 k/uL (1.3-7.7); Neutrophils % (A) 47 %; Platelet Count 199 k/uL (150-450); RBC 4.22 m/uL (4.30-5.90); RDW 12.7 % (11.5-15.5)
[2019-06-16 07:18] LABS: Calcium 9.1 mg/dL (8.4-10.2); Potassium 4.4 mmol/L (3.5-5.1)
[2019-06-16 07:37] VITALS: RESP 18
[2019-06-16] MEDS: INSULIN ASPART (NovoLOG) 100 UNIT/ML VIAL SQ SCH ×2 (08:43→11:46)
[2019-06-16] MEDS: HEPARIN SODIUM,PORCINE 5,000 UNIT/ML 1 ML VIAL SQ SCH (08:43)
[2019-06-16] MEDS: metFORMIN 500 MG TAB PO SCH (08:44)
[2019-06-16] MEDS: TAMSULOSIN 0.4 MG CAP.ER.24H PO SCH (08:44)
[2019-06-16] MEDS: MULTIVITAMINS, THERA 1 EACH TAB PO SCH (08:44)
[2019-06-16] MEDS: ASPIRIN 81 MG PO SCH (08:44)
[2019-06-16] MEDS: MECLIZINE 12.5 MG TAB PO SCH (08:44)
--- NOTE | 2019-06-16 08:47 | PN ---
PROGRESS NOTE Mr. Thurston is in sinus rhythm. Resting comfortably. His dizziness has resolved almost completely. His vital signs stable. S1-S2 heard normally. Short systolic murmur noted. Lungs are clear. Abdomen and lower extremity exam is unchanged. Echo revealed good systolic function. This patient can be discharged and follow up with his primary care physician. His vertigo symptoms have resolved and further evaluation can be had as an outpatient by ENT. His carotid Doppler is unremarkable. MMODL / IJN: [id number] /
[2019-06-16] MEDS ORDERED: LISINOPRIL 20 MG TAB PO SCH (09:00)
[2019-06-16 10:59] VITALS: BP 116/68; PULSE 68; TEMP 98.2
[2019-06-16 11:42] LABS: Glucose,Whole Blood 115 mg/dL (75-99)
--- NOTE | 2019-06-17 05:42 | DS ---
DISCHARGE SUMMARY DATE OF SERVICE: 06/16/2018 FINAL DIAGNOSES: 1. Dizziness, vertigo evaluation with possible peripheral vestibular dysfunction. 2. Carotid stenosis 50% bilaterally. 3. No evidence of cardiac arrhythmia currently. 4. Diabetes mellitus type 2. 5. Hypertension. 6. Gait dysfunction. 7. Hyperlipidemia. 8. History of melanoma. 9. Remote history of nicotine dependence. 10.FULL CODE. DISCHARGE DISPOSITION: The patient will be discharged in stable condition with guarded prognosis. HISTORY OF PRESENT ILLNESS: This 83-year-old gentleman with a past medical history of multiple medical problems being followed Dr. Graves in the outpatient setting admitted with dizziness and vertigo. Patient was evaluated by Neurology and the peripheral vestibular dysfunction was noted. Carotid stenosis also noted. Recommended outpatient followup. On exam, vitals are stable. CARDIOVASCULAR: S1, S2 muffled. ABDOMEN: Soft. NERVOUS SYSTEM: No focal deficits. The patient improved significantly. Patient discharged in stable condition with guarded prognosis with the following advice: 1. Diet is cardiac. 2. Activity limited until followup. 3. Follow up with ENT as mentioned earlier. 4. Follow up with Neurology and Cardiology. 5. Follow up at the [facility] in 1 to 2 days. Medications are as follow: 1. Ecotrin 81 mg daily. 2. [place]-3 fatty acids p.o. daily. 3. Flomax 0.4 daily. 4. Glucophage 500 mg p.o. b.i.d. 5. Multivitamins one p.o. daily. 6. Simvastatin 20 mg at bedtime. 7. Zestril 10 mg p.o. daily. 8. Antivert 12.5 mg t.i.d. p.r.n. Once again, the patient will be discharged in stable condition with guarded prognosis. MMODL / IJN: [id number] /
== END 2019-06-16 12:31 | disposition home or self-care (01) ==
LOC: EC 09:47 → 1SOBS 13:50
PROVIDERS: ADMIT Hospitalist; ATTEND Hospitalist
DX: R42 Dizziness and giddiness (principal); R55 Syncope and collapse; M25.552 Pain in left hip; M54.5 Low back pain; W18.30XA Fall on same level, unspecified, initial encounter; Y92.002 Bathroom of unspecified non-institutional (private) residence as the place of occurrence of the external cause; E11.9 Type 2 diabetes mellitus without complications; I10 Essential (primary) hypertension; E78.5 Hyperlipidemia, unspecified; I65.23 Occlusion and stenosis of bilateral carotid arteries; R26.9 Unspecified abnormalities of gait and mobility; M50.30 Other cervical disc degeneration, unspecified cervical region; J32.0 Chronic maxillary sinusitis; J32.2 Chronic ethmoidal sinusitis; J32.3 Chronic sphenoidal sinusitis; J34.1 Cyst and mucocele of nose and nasal sinus; G31.9 Degenerative disease of nervous system, unspecified; M51.36 Other intervertebral disc degeneration, lumbar region; M80.88XA Other osteoporosis with current pathological fracture, vertebra(e), initial encounter for fracture; Z79.84 Long term (current) use of oral hypoglycemic drugs; Z79.82 Long term (current) use of aspirin; Z79.899 Other long term (current) drug therapy; Z87.891 Personal history of nicotine dependence; Z90.49 Acquired absence of other specified parts of digestive tract; Z85.820 Personal history of malignant melanoma of skin
CPT/HCPCS: 96361 ×3; 96372 ×3; 96360; 99285; 36415; 93005; 93306; 97162; 80053; 80048 ×2; 82607; 82746; 84484; 85025 ×3; 85610; 81003; 86780; 83036; 72100; 73502; 71046; 93880; 72125; 70450; G0378 ×3; J1644 ×3